=== PATIENT | female | born 2000 | race Caucasian/White ===

== ENCOUNTER → 2019-01-24 | Outpatient (REF) | payer BC, MEDICAID ==
[2019-01-24 17:29] LABS: APPEARANCE, URINE CLEAR (CLEAR); BACTERIA, URINE AUTO 3+ (NEGATIVE); BILIRUBIN, URINE AUTO NEGATIVE (NEGATIVE); BLOOD, URINE BLOOD 1+ (NEGATIVE); COLOR, URINE YELLOW (YELLOW); GLUCOSE, URINE (UA) AUTO NEGATIVE (NEGATIVE); KETONE, URINE AUTO NEGATIVE (NEGATIVE); LEUKOCYTE ESTERASE, URINE AUTO 3+ (NEGATIVE); MUCUS, URINE SMALL (NEGATIVE); NITRITE, URINE AUTO NEGATIVE (NEGATIVE); PROTEIN, URINE AUTO NEGATIVE (NEGATIVE); RBC, URINE AUTO 6 /HPF (0-3); SPECIFIC GRAVITY URINE AUTO 1.004 (1.002-1.035); SQUAMOUS EPITHELIAL CELL UR AU 6 /HPF (0-6); UROBILINOGEN, URINE AUTO 0.2 mg/dL (0.0-2.0); WBC, URINE AUTO 47 /HPF (0-3)
== END ==
LOC: M LAB REF 16:45
PROVIDERS: ATTEND Physician Assistant Medical
DX: N39.0 Urinary tract infection, site not specified (principal)

== ENCOUNTER → 2019-02-24 | Outpatient (REF) | payer BC, MEDICAID ==
[2019-02-24 23:35] LABS: CHLAMYDIA DNA AMPLIFICATION NEGATIVE (NEGATIVE); GC DNA AMPLIFICATION NEGATIVE (NEGATIVE)
== END ==
LOC: M LAB REF 10:59
PROVIDERS: ATTEND Physician Assistant
DX: R30.0 Dysuria (principal)

== ENCOUNTER → 2019-08-18 | Outpatient (REF) | payer BC, MEDICAID ==
[2019-08-18 18:05] LABS: HEMATOCRIT 38.9 % (36.0-47.0); HEMOGLOBIN 12.7 g/dl (12.0-15.5); MEAN CORPUSCULAR HEMOGLOBIN 27.7 pg (27.0-33.0); MEAN CORPUSCULAR HGB CONC 32.6 g/dl (32.0-36.5); MEAN CORPUSCULAR VOLUME 84.7 fl (80.0-96.0); PLATELET COUNT, AUTOMATED 321 10^3/uL (150-450); RED BLOOD COUNT 4.59 10^6/uL (4.00-5.40); WHITE BLOOD COUNT 7.4 10^3/uL (4.0-10.0)
[2019-08-18 20:40] LABS: CHLAMYDIA DNA AMPLIFICATION NEGATIVE (NEGATIVE); GC DNA AMPLIFICATION NEGATIVE (NEGATIVE)
[2019-08-19 09:29] LABS: HEPATITIS B SURFACE ANTIGEN NEGATIVE (NEGATIVE); HEPATITIS C VIRUS ABY INDEX 0.2 INDEX (<0.8); HIV 1&2 SCREEN CENTAUR NEGATIVE (NEGATIVE); RUBELLA IgG QUALITATIVE IMMUNE (IMMUNE)
== END ==
LOC: M PLALAB 14:17
PROVIDERS: ATTEND Advanced Practice Midwife
DX: Z34.01 Encounter for supervision of normal first pregnancy, first trimester (principal)

== ENCOUNTER → 2019-09-16 | Outpatient (REF) | payer BC, MEDICAID | LOC: M SFHCWAGY 16:31 | PROVIDERS: ATTEND Advanced Practice Midwife | DX: Z34.01 Encounter for supervision of normal first pregnancy, first trimester (principal) ==

== ENCOUNTER 2019-10-29 15:41 | Emergency (ER) | payer BC, MEDICAID ==
[~2019-10-29] VITALS: Ht 165.1 cm; Wt 57.3 kg
[2019-10-29] MEDS ORDERED: PREN29TA4 PO (15:47)
[2019-10-29 16:31] LABS: BASO % 0.3 % (0.0-1.0); EOS % 0.5 % (0.0-3.0); HEMATOCRIT 35.2 % (36.0-47.0); HEMOGLOBIN 11.6 g/dl (12.0-15.5); LYMPH # 1.4 10^3/uL (1.5-5.0); LYMPH % 17.6 % (24.0-44.0); MEAN CORPUSCULAR HEMOGLOBIN 27.4 pg (27.0-33.0); MEAN CORPUSCULAR VOLUME 83.2 fl (80.0-96.0); MONO # 0.5 10^3/uL (0.0-0.8); MONO % 6.5 % (0.0-5.0); NEUTROPHILS # 5.7 10^3/uL (1.5-8.5); NEUTROPHILS % 74.7 % (36.0-66.0); PLATELET COUNT, AUTOMATED 289 10^3/uL (150-450); RED BLOOD COUNT 4.23 10^6/uL (4.00-5.40); WHITE BLOOD COUNT 7.7 10^3/uL (4.0-10.0)
[2019-10-29 16:59] LABS: BLOOD UREA NITROGEN 5 MG/DL (7-18); CARBON DIOXIDE LEVEL 26 MEQ/L (21-32); CHLORIDE LEVEL 106 MEQ/L (98-107); GLUCOSE, FASTING 92 MG/DL (70-100); SODIUM LEVEL 137 MEQ/L (136-145)
[2019-10-29 17:02] LABS: APPEARANCE, URINE CLEAR (CLEAR); BACTERIA, URINE AUTO 1+ (NEGATIVE); BILIRUBIN, URINE AUTO NEGATIVE (NEGATIVE); BLOOD, URINE BLOOD 3+ (NEGATIVE); COLOR, URINE STRAW (YELLOW); GLUCOSE, URINE (UA) AUTO NEGATIVE (NEGATIVE); KETONE, URINE AUTO TRACE mg/dL (NEGATIVE); LEUKOCYTE ESTERASE, URINE AUTO 2+ (NEGATIVE); NITRITE, URINE AUTO NEGATIVE (NEGATIVE); PROTEIN, URINE AUTO NEGATIVE (NEGATIVE); RBC, URINE AUTO 60 /HPF (0-3); SPECIFIC GRAVITY URINE AUTO 1.003 (1.002-1.035); SQUAMOUS EPITHELIAL CELL UR AU 0 /HPF (0-6); UROBILINOGEN, URINE AUTO 0.2 mg/dL (0.0-2.0); WBC, URINE AUTO 16 /HPF (0-3)
--- NOTE | 2019-10-29 18:03 | REPVR ---
PROCEDURE INFORMATION: Exam: US , Limited Exam date and time: 10/29/2019 5:22 PM Age: 19 years old Clinical indication: Lmp or gestational age (in weeks): 18 weeks; Antepartum complications; Bleeding; ; Additional info: Vaginal bleeding post coital, 18 weeks TECHNIQUE: Imaging protocol: Real-time ultrasound of the maternal uterus with image documentation. Exam focused on the clinical indication. COMPARISON: No relevant prior studies available. FINDINGS: Gestation: Single intrauterine gestation. Single fetus demonstrated. Heart rate: heart rate 144 bpm. Placenta: Posterior placenta without evidence of placenta previa. Amniotic fluid: Unremarkable amniotic fluid volume. BIOMETRY: Estimated gestational age: Gestational age based on LMP of 06/25/2019 is 18 weeks. Estimated due date: EMMA 03/31/2020. MATERNAL: Cervix: Cervix measures 4.3 cm. Other findings: Anatomical survey was not requested or performed on this exam. IMPRESSION: Unremarkable limited examination of this 18 weeks gestational age fetus. Electronically signed by: Rafiq Ramires On 10/29/2019 18:02:40 PM
[2019-10-29] MEDS ORDERED: KEFL500C17 PO (19:08)
[2019-10-29 19:25] VITALS: BP 105/85
== END 2019-10-29 19:25 | disposition home or self-care (01) ==
LOC: M ED 15:41
DX: O21.8 Other vomiting complicating pregnancy (principal); O23.42 Unspecified infection of urinary tract in pregnancy, second trimester; Z3A.18 18 weeks gestation of pregnancy; Z88.6 Allergy status to analgesic agent

== ENCOUNTER → 2019-11-14 | Outpatient (CLI) | payer BC, MEDICAID ==
[~2019-11-14] MED LIST: ACET-683 PO; KEFL500C17 PO; PREN29TA4 PO
--- NOTE | 2019-11-14 16:13 | REP ---
OBSTETRIC SONOGRAPHY: HISTORY: Supervision of for anatomy. FINDINGS: Scanning through the gravid uterus demonstrates a single living intrauterine gestation in a variable lie. motion is observed and heart rate is recorded at 149 beats per minute. A posterior grade 1 placenta is seen without evidence of previa or abruption. Amniotic fluid is subjectively normal. Closed cervical length measures 3.7 cm, viewed transabdominally. No extrauterine abnormality is observed. There has been appropriate interval growth. No anomaly is seen. The following anatomic structures are identified and felt to be sonographically unremarkable: cranium, choroid plexus, cavum, cerebellum and posterior fossa, nuchal fold, face and profile, four-chamber heart with left and right ventricular outflow tract views, diaphragm, left-sided stomach, abdominal wall cord insertion, three-vessel cord, kidneys and bladder, spine, upper and lower extremities. BIOMETRY CHART: BPD 4.8 cm = 20 weeks 4 days Head circumference 17.9 cm = 20 weeks 2 days Abdominal circumference 15.1 cm = 20 weeks 2 days Femur length 3.5 cm = 21 weeks 1 day Humeral length 3.5 cm = 21 weeks 6 days HC/AC ratio normal 1.19, cephalic index normal 0.74, estimated weight 368 grams, 0 pounds 12 ounces, 59th percentile for 20 weeks 2 days. IMPRESSION: Viable single intrauterine gestation at 20 weeks 3 days by today's composite criteria. Expected gestational age estimate based on prior sonography is 20 weeks 2 days. EMMA by prior sonography, March 31, 2020.
== END ==
LOC: M WHC 13:26
PROVIDERS: ATTEND Advanced Practice Midwife
DX: Z34.82 Encounter for supervision of other normal pregnancy, second trimester (principal)

== ENCOUNTER → 2019-12-30 | Outpatient (CLI) | payer BC, MEDICAID ==
[2020-02-16 17:54] LABS: BASO % 0.3 % (0.0-1.0); EOS # 0.1 10^3/uL (0.0-0.5); EOS % 0.9 % (0.0-3.0); HEMATOCRIT 34.5 % (36.0-47.0); HEMOGLOBIN 10.8 g/dl (12.0-15.5); LYMPH # 1.1 10^3/uL (1.5-5.0); MEAN CORPUSCULAR HEMOGLOBIN 26.9 pg (27.0-33.0); MEAN CORPUSCULAR HGB CONC 31.3 g/dl (32.0-36.5); MEAN CORPUSCULAR VOLUME 85.8 fl (80.0-96.0); MONO # 0.6 10^3/uL (0.0-0.8); MONO % 8.8 % (0.0-5.0); NEUTROPHILS # 4.9 10^3/uL (1.5-8.5); NEUTROPHILS % 73.4 % (36.0-66.0); PLATELET COUNT, AUTOMATED 266 10^3/uL (150-450); RED BLOOD COUNT 4.02 10^6/uL (4.00-5.40); WHITE BLOOD COUNT 6.6 10^3/uL (4.0-10.0)
== END ==
LOC: M LAB 12:40
PROVIDERS: ATTEND Nurse Practitioner Women's Health
DX: Z34.02 Encounter for supervision of normal first pregnancy, second trimester (principal); Z3A.20 20 weeks gestation of pregnancy

== ENCOUNTER → 2020-03-16 | Outpatient (REF) | payer BC, MEDICAID ==
[~2020-03-16] MED LIST changes: -ACET-683 PO
[2020-03-16 13:05] LABS: HEMATOCRIT 37.5 % (36.0-47.0); HEMOGLOBIN 11.7 g/dl (12.0-15.5); MEAN CORPUSCULAR HEMOGLOBIN 27.1 pg (27.0-33.0); MEAN CORPUSCULAR HGB CONC 31.2 g/dl (32.0-36.5); PLATELET COUNT, AUTOMATED 237 10^3/uL (150-450); RED BLOOD COUNT 4.31 10^6/uL (4.00-5.40); WHITE BLOOD COUNT 6.9 10^3/uL (4.0-10.0)
[2020-03-16 13:28] LABS: TOTAL PROTEIN,RANDOM URINE 5.6 MG/DL (0.0-12.0)
[2020-03-16 13:33] LABS: ALT/SGPT 12 U/L (12-78); BILIRUBIN,TOTAL 0.3 MG/DL (0.2-1.0); LDH LACTATE DEHYDROGENASE 158 U/L (84-246); URIC ACID 5.5 MG/DL (2.6-6.0)
== END ==
LOC: M PLALAB 10:47
PROVIDERS: ATTEND Advanced Practice Midwife
DX: O16.3 Unspecified maternal hypertension, third trimester (principal); Z3A.00 Weeks of gestation of pregnancy not specified

== ENCOUNTER → 2020-03-21 | Outpatient (CLI) | payer BC, MEDICAID | LOC: M LABSMTC 10:29 | PROVIDERS: ATTEND Anesthesiology | DX: Z01.818 Encounter for other preprocedural examination (principal) | CPT/HCPCS: C9803; U0002 ==

== ENCOUNTER 2020-03-26 03:47 | Inpatient (IN) | payer BC, MEDICAID ==
[~2020-03-26] VITALS: Ht 165.1 cm; Wt 69.1 kg
[2020-03-26] VITALS (28 sets, daily range): BP systolic 107–150; BP diastolic 54–87
[2020-03-26] MEDS ORDERED: PENICILLIN G POTASSIUM IV 5 MU in D5W MINI-BAG PLUS 100 ML IV STA (08:51)
[2020-03-26] MEDS ORDERED: LACTATED RINGER'S 1000 ML IV STA (08:51)
--- NOTE | 2020-03-26 09:01 | HPEPDOC ---
Obstetrical History & Physical General Date of Admission 03/26/20 History of Present Illness Jacob is a 19 y/o at 39.2weeks EGA by LMP (06/25/19). She started her care at [facility] in the first trimester. History significant for asthma, GBS bacteriuria, and one elevated BP on 03/24/20. Preeclamptic labs showed a urine protein/creatinine ratio of 0.4, all other labs were in normal limits. She presents today with a c/o contractions that started at 1900 and progressed throughout the night. She has not been able to rest through them and appears uncomfortable breathing through contractions this morning. Reports good FM, denies LOF, vaginal bleeding. Denies headache, visual disturbances, epigastric pain, nausea/vomiting. Chief Complaint: Contractions, term Information Provided By: Patient Age: 19 : 2 Term: 0 Pre-term: 0 Abortions: 1 Livin Care Care: Good Care Dating Final EDC: Mar 31, 2020 Final EDC by: LMP LMP: Jun 25, 2019 EGA at Admission: 39.2 Antepartum Course Diagnos(e)s Preeclampsia Height (inches): 65 Pre- weight (lbs.): 122 Admission Weight (lbs.): 152 Change in Weight (lbs.): 30 Past Medical History Past Obstetrical History : Past Obstetrical History: [employer] History: Spontaneous Past Medical History Medical History Asthma, no medications Surgical History: Tonsilectomy (With Adenoidectomy), Other (Eustachian tubes) Family History Significant Family History: Cancer (MGF), Hypertension (MGM) Social History Marital Status: Single Family situation: Spouse/partner home (S/O on COVID isolation protocol, has another labor personal health coach who will be present) Psychosocial History: No pertinent psych hx * Smoker: non-smoker Alcohol: Denies Drugs: denies Imunizations Tdap status: current Influenza Status: declined Allergies Coded Allergies: ibuprofen (Verified Allergy, Unknown, 10/29/19) Medications Scheduled Prenat 115/Iron Fum/Folic/Dss ( 19 Tablet) 1 Each Tablet, 1 TAB PO DAILY Physical Examination Physical Examination GENERAL: Alert and oriented times three. VSS, afebrile, normotensive. ABDOMEN: Gravid and non-tender to touch. Mild contractions palpated, resting tone soft. FETUS: Is vertex (VTX) by sterile vaginal examination (SVE), fetus is vertex (VTX) by Zachary. EFW 7-7.5 lbs. HEART RATE: Regular rate and rhythm. LUNGS: Clear to auscultation (CTA) bilaterally. EXTREMITIES: No edema. No clonus. Deep tendon reflexes (DTRs) + 2. Negative clonus. Vital Signs/I&O Vital Signs Date Time Temp Pulse Resp B/P (MAP) Pulse Ox O2 Delivery O2 Flow Rate FiO2 03/26/20 07:10 97.7 90 18 131/61 (84) Laboratory Data Urine Culture: Other (GBS) Pertinent Laboratoy Data Blood Type: A+ RBC Antibody Screen: Negative HIV: Negative Hepatitis B: Negative Hepatitis C: Negative Rapid Plasma Reagin: Nonreactive Rubella: Immune Chlamydia/Gonorrhea: Negative Group B Streptococcus: Positive (in urine) Quad Screen Test: Declined Cystic Fibrosis: Declined Glucose Tolerance Test: 97 Diag/Inter Therapy 03/21/20 - COVID Negative Anatomy Ultrasound Ultrasound Date: Nov 14, 2019 Normal Anatomy: Yes Placenta Previa: No Estimated Weight (grams): 368 Steroid Therapy Steroid Therapy: No Vaginal Examination Dilation: 4 cm Effacement: 80% Station: 0 Cervical Consistency: Soft Cervical Position: Posterior Presentation: Cephalic presentation Position: Vertex (occiput) Assessment Heart Rate (FHR): 135 Variability: Moderate Accelerations: Positive Decelerations: None Tocometer Contractions: Yes Frequency: irregular, every 3-7 min. Duration: greater than 60 seconds Strength: palpated as mild Multi-drug resistant Organism: No history of MDRO Assessment/Plan Assessment SIUP at 39.2weeks Preeclampsia GBS positive Cat 1 FHR tracing active labor Plan Admit to Labor and Delivery. Dr. Fitzgerald aware of patient being in department. OOB ad nalini. Diet: Clear Liquids. Group B Streptococcus (GBS) positive in urine. PCN G to be started. Labs and intravenous (IV) per unit protocol. Counseled on potential augmentation with IV Pitocin. Plans for an epidural for labor pain management. Consult Anesthesia. Lactated Ringers (LR): Bolus 600 mL, then saline lock. Anticipate normal spontaneous delivery (). C-S as appropriate. ABUNDIO CHRISTOPHER CNM Mar 26, 2020 08:31
[2020-03-26 09:43] LABS: HEMATOCRIT 38.6 % (36.0-47.0); HEMOGLOBIN 12.1 g/dl (12.0-15.5); MEAN CORPUSCULAR HEMOGLOBIN 26.9 pg (27.0-33.0); MEAN CORPUSCULAR HGB CONC 31.3 g/dl (32.0-36.5); PLATELET COUNT, AUTOMATED 232 10^3/uL (150-450); RED BLOOD COUNT 4.49 10^6/uL (4.00-5.40); WHITE BLOOD COUNT 11.6 10^3/uL (4.0-10.0)
[2020-03-26 10:03] LABS: ALT/SGPT 11 U/L (12-78); BILIRUBIN,TOTAL 0.2 MG/DL (0.2-1.0); CREATININE FOR GFR 0.59 MG/DL (0.55-1.30); LDH LACTATE DEHYDROGENASE 212 U/L (84-246); URIC ACID 5.8 MG/DL (2.6-6.0)
[2020-03-26] MEDS ORDERED: FENTANYL 2MCG/ML ROPIVACAINE 0.2% IN 0.9% NACL 100ML IVBAG As Ordered ONE (10:51)
[2020-03-26] MEDS ORDERED: OXYTOCIN 30 UNITS IN 0.9% NaCl 500ML IV BAG (J2590) As Ordered ONE (11:35)
[2020-03-26] MEDS ORDERED: REFRIGERATOR IV KEYS XX PRN (13:00)
[2020-03-26] MEDS ORDERED: EPIDURAL/PCA KEYS XX PRN (13:00)
[2020-03-26] MEDS ORDERED: ePHEDrine SULFATE 25 MG/5 ML(5MG/ML) SYRINGE IV PRN (13:00)
[2020-03-26] MEDS ORDERED: LACTATED RINGER'S 1000 ML IV PRN (13:00)
[2020-03-26] MEDS ORDERED: NALOXONE INJ 0.4MG/1ML VIAL (J2310 PER 1MG) IV PRN (13:00)
[2020-03-26] MEDS ORDERED: EPIDURAL COMMENT XX SCH (13:00)
[2020-03-26] MEDS ORDERED: FENTANYL/ROPIVACAINE/NACL BAG 100 ML EPIDURAL SCH (13:00)
[2020-03-26] MEDS ORDERED: diphenhydrAMINE 50MG/ML VIAL (J1200) IV PRN (13:00)
[2020-03-26] MEDS ORDERED: ONDANSETRON 4MG/2ML VIAL IV PRN (13:00)
[2020-03-26] MEDS: PENICILLIN G POTASSIUM IV 2.5 MU in IV 1 EA IV SCH ×2 (13:16→17:09)
[2020-03-26] MEDS ORDERED: OXYTOCIN DRIP 30 UNITS in IV 1 EA IV SCH (14:00)
[2020-03-26] MEDS: LR 1,000 ML IV SCH ×2 (14:01→19:38)
--- NOTE | 2020-03-26 15:03 | IPNPDOC ---
Obstetrical Progress Note Date of Service Mar 26, 2020 Subjective Reports being much more comfortable with epidural. Objective Vital Signs Date Time Temp Pulse Resp B/P (MAP) Pulse Ox O2 Delivery O2 Flow Rate FiO2 03/26/20 13:11 83 121/61 (81) 03/26/20 07:10 97.7 18 Assessment Heart Rate (FHR): 135 Variability: Moderate Accelerations: Positive Decelerations: None Heart Rate Tracing: Category I Tocometer Contractions: Yes Frequency: irregular, every 2-5 min. Duration: greater than 60 seconds Strength: palpated as moderate, resting tone palp/soft Sterile Vaginal Examination Dilation: 5 cm Effacement (%): 100% Station: 0 Cervical Consistency: Soft Cervical Position: Anterior Postion/Presentation: Cephalic presentation Assessment and Plan Age: 19 : 2 Term: 0 Pre-term: 0 Abortions: 0 Livin EGA at Admission: 39.2 Status: Reassuring Group B Streptococcus: Negative Anticipate: Vaginal Delivery Additional Comments AROM for clear fluid. Pitocin at 4mu/min. Epidural running, working well per patient. Continue with Pitocin Cat 1 FHR tracing. Anticipate . ABUNDIO CHRISTOPHER CNM Mar 26, 2020 15:03
--- NOTE | 2020-03-26 19:14 | IPNPDOC ---
Obstetrical Progress Note Date of Service Mar 26, 2020 Subjective Reports epidural working well. Denies any rectal or vaginal pressure. Objective Vital Signs Date Time Temp Pulse Resp B/P (MAP) Pulse Ox O2 Delivery O2 Flow Rate FiO2 03/26/20 18:33 80 110/62 (78) 03/26/20 15:35 18 03/26/20 07:10 97.7 Assessment Heart Rate (FHR): 145 Variability: Moderate Accelerations: Positive Decelerations: None Heart Rate Tracing: Category I Tocometer Contractions: Yes Frequency: every 1-3 min. Duration: greater than 60 seconds Strength: palpated as mod/strong, resting tone palp/soft Sterile Vaginal Examination Dilation: 9 cm (Anterior Lip) Effacement (%): 100% Station: 0 Cervical Consistency: Soft (Stretchy) Cervical Position: Anterior Postion/Presentation: Cephalic presentation Assessment and Plan Age: 19 : 2 Term: 0 Pre-term: 0 Abortions: 1 Livin EGA at Admission: 39.2 Status: Reassuring Group B Streptococcus: Negative Anticipate: Vaginal Delivery Additional Comments Large amount of bloody show noted on bed pads, pads changed. Pitocin at 8mu/min. Continue Pitocin and position changes. ABUNDIO CHRISTOPHER CNM Mar 26, 2020 19:14
[2020-03-26] MEDS ORDERED: ACETAMINOPHEN 500 MG TAB PO ONE (19:45)
[2020-03-26 21:33] LABS: CORD GAS ABE V -5.5; CORD GAS HCO3 V 20.8 MEQ/L; CORD GAS O2 SAT V 67.2 %; CORD GAS PCO2 V 43.6 mmHg; CORD GAS PH V 7.297 UNITS; CORD GAS PO2 V 31.4 mmHg; CORD GAS SBC V 19.3 MEQ/L; CORD GAS TCO2 V 22.2 MEQ/L
[2020-03-26 21:33] LABS: CORD GAS ABE A -6.6; CORD GAS HCO3 A 22.1 MEQ/L; CORD GAS O2 SAT A 31.2 %; CORD GAS PCO2 A 57.8 mmHg; CORD GAS PH A 7.2 UNITS; CORD GAS PO2 A 18.1 mmHg; CORD GAS SBC A 17.8 MEQ/L; CORD GAS TCO2 A 23.9 MEQ/L
--- NOTE | 2020-03-26 21:54 | DNPDOC ---
[facility] Delivery Note Delivery Note DATE OF DELIVERY: 03/26/2020 TIME OF : 2118 GENDER: Male. APGARS: 5, 6 and 7 WEIGHT: 8 lbs. 10 oz. LACERATIONS: Bilateral labial ANESTHESIA: epidural ESTIMATED BLOOD LOSS: 300ml MODE OF DELIVERY: Low vacuum-assisted vaginal delivery COUNTS: 5 laparotomy sponges accounted for prior to after delivery. 3 sharps removed from delivery field. CORD GASES: 7.2 and 7.29 with base excess -6.6 and -5.5 respectively DELIVERY NOTE: On on 04/06/2020 Ms. Barger a 19-year-old 1 now para 1 had a low vacuum-assisted vaginal delivery of a liveborn male infant Apgars 5,6, 7 wt 8 lbs. 10 oz. Indication for operative delivery was nonreassuring testing with tachycardia with minimal variability. Patient was verbally consented for operative delivery and vacuum was placed and with 2 sets of maternal pushing effort 1 pop-off, head was delivered occiput anterior (OA), followed by delivery of the shoulders and corpus. Cord was clamped times two and was cut by support person under my direction. Placenta was then drained and delivered grossly intact. A premixed bag of 500 mL of normal saline with 30 units of Pitocin was then bolused along with uterine massage until the uterus was firm. On inspection bilateral labial lacerations which was repaired with 3- 0 Vicryl. On reinspection, cervix, vagina, perineum was grossly intact and hemostatic. Mom and baby recovery in stable condition. YASMANI PERALES MD. Mar 26, 2020 21:54
[2020-03-27 01:06] VITALS: BP 132/67
[2020-03-27] MEDS ORDERED: ACETAMINOPHEN 500 MG TAB PO ONE (05:00)
[2020-03-27 06:37] VITALS: BP 144/76
--- NOTE | 2020-03-27 07:12 | IPNPDOC ---
Progress Note Date of Service: Mar 27, 2020 Day#: 1 Progress Note SUBJECT: Jacob is a 19-year-old 2 now Para 1-0-1-1 status post vacuum assisted vaginal delivery at 39-2/7 weeks' with labial laceration and repair, doing well day # 1. She came in to L&D in active labor as she was waiting for a bed for L&D. She has been ambulating, and experiencing chest tightness, shortness of breath, and dizziness with ambulation. She is voiding spontaneously without issue and tolerating regular diet. Plans to start pumping this morning, as is still in the NICU but doing well. Reports lochia is like a normal period. Reports some cramping. Pain well controlled with Tylenol. OBJECTIVE: VITAL SIGNS: Within normal limits, afebrile. Alert and oriented times three. RESPIRATORY: Regular rate, no accessory muscle use. Abdomen: Fundus firm at U. Soft, NTTP. Minimal lochia. ASSESSMENT: Day 1, preeclampsia PLAN: 1. Anticipate discharge on Thursday. 2. Tylenol for pain. 3. Encourage pumping and ambulation. 4. CBC and preeclamptic profile ordered due to symptoms of dizziness with ambulation. VS, I&O, 24H, Fishbone Vital Signs/I&O Vital Signs Date Time Temp Pulse Resp B/P (MAP) Pulse Ox O2 Delivery O2 Flow Rate FiO2 03/27/20 06:37 98.1 75 20 144/76 (98) 03/27/20 01:06 98 Room Air I&O- Last 24 Hours up to 6 AM 03/27/20 06:00 Intake Total 2460 ml Output Total 2000 ml Balance 460 ml Laboratory Data 24H LABS Laboratory Tests 2 03/26/20 08:05: Coronavirus (COVID-19)(PCR) NEGATIVE 03/26/20 09:04: Serology Scanned Report Hepatitis B Testing 03/26/20 09:19: Nucleated Red Blood Cells % (auto) 0.0, Uric Acid 5.8, Total Bilirubin 0.2, Aspartate Amino Transf (AST/SGOT) 14, Alanine Aminotransferase (ALT/SGPT) 11L, Lactate Dehydrogenase 212, Syphilis Serology NONREACTIVE 03/26/20 21:26: Cord Arterial Blood pH 7.200, Cord Arterial Blood PCO2 57.8, Cord Arterial Blood PO2 18.1, Cord Arterial Blood HCO3 22.1, Cord Arterial Blood Total CO2 23.9, Cord Arterial Blood Base Excess -6.6, Cord Arterial Base Excess (Standard 17.8, Cord Arterial Bld Oxygen Saturation 31.2 03/26/20 21:28: Cord Venous Blood pH 7.297, Cord Venous Blood PCO2 43.6, Cord Venous Blood PO2 31.4, Cord Venous Blood HCO3 20.8, Cord Venous Blood Total CO2 22.2, Cord Venous Base Excess (Actual) -5.5, Cord Venous Base Excess (Standard) 19.3, Cord Venous Blood Oxygen Saturation 67.2 CBC/BMP Laboratory Tests 03/26/20 09:19 ABUNDIO CHRISTOPHER CNM Mar 27, 2020 07:11
[2020-03-27] MEDS ORDERED: OXYTOCIN DRIP 30 UNITS in IV 1 EA IV SCH (07:56)
[2020-03-27] MEDS ORDERED: ACETAMINOPHEN TAB 650MG DOSE (2X325MG) PO PRN (08:00)
[2020-03-27] MEDS ORDERED: ANUSOL HC CREAM 30GM TOP PRN (08:00)
[2020-03-27] MEDS ORDERED: DOCUSATE SODIUM 100 MG CAP PO PRN (08:00)
[2020-03-27] MEDS ORDERED: RHOGAM 300 MCG (1500 IU) INJ (J2790) IM SCH (08:00)
[2020-03-27] MEDS ORDERED: DIBUCAINE 1% OINTMENT 30GM TOP PRN (08:00)
[2020-03-27] MEDS ORDERED: MEASLES,MUMPS,RUBELLA VACCINE INJ (MMR-II) (90707) SC SCH (08:00)
[2020-03-27] MEDS ORDERED: ACETAMINOPHEN 500 MG TAB PO PRN (08:00)
[2020-03-27] MEDS ORDERED: METHYLERGONOVINE MALEATE 0.2 MG TAB PO PRN (08:00)
[2020-03-27 09:14] LABS: ALT/SGPT 9 U/L (12-78); BILIRUBIN,TOTAL 0.3 MG/DL (0.2-1.0); CREATININE FOR GFR 0.49 MG/DL (0.55-1.30); LDH LACTATE DEHYDROGENASE 199 U/L (84-246)
[2020-03-27] MEDS ORDERED: BICITRA 30ML SOLN UDC PO ONE (09:45)
[2020-03-27] MEDS: PRENATAL VITAMINS CHEWABLE TABLET PO SCH (09:49)
[2020-03-27 10:04] LABS: HEMOGLOBIN 10.6 g/dl (12.0-15.5); MEAN CORPUSCULAR HEMOGLOBIN 26.8 pg (27.0-33.0); MEAN CORPUSCULAR HGB CONC 31.2 g/dl (32.0-36.5); MEAN CORPUSCULAR VOLUME 85.9 fl (80.0-96.0); PLATELET COUNT, AUTOMATED 198 10^3/uL (150-450); RED BLOOD COUNT 3.96 10^6/uL (4.00-5.40); WHITE BLOOD COUNT 13.9 10^3/uL (4.0-10.0)
--- NOTE | 2020-03-27 17:05 | REP ---
INDICATION: chest pain, s/p vaginal delivery 03/26/2020. COMPARISON: PA chest 09/27/2007 TECHNIQUE: PA and lateral images were provided. FINDINGS: Two views show the lungs well inflated without pleural effusion, acute infiltrate, atelectasis or mass. Heart, mediastinal and hilar contours are normal. There is no pneumothorax or pneumomediastinum. The aorta and airway were intact. The bony thorax shows no focal lesion. There is no free air under the diaphragm. IMPRESSION: 1. Negative chest for infiltrate, effusion, atelectasis or other acute finding. No pneumothorax or free air under the diaphragm nor other acute chest finding. <Electronically signed by Sarbjit Pleitez > 03/27/20 [id number]
[2020-03-27 18:00] VITALS: BP 132/73
[2020-03-28 05:54] VITALS: BP 121/57
[2020-03-28] MEDS ORDERED: ACET-683 PO (06:42)
[2020-03-28] MEDS: PRENATAL VITAMINS CHEWABLE TABLET PO SCH (08:29)
[2020-03-28] MEDS ORDERED: INFLUENZA QUADRIVALENT PF VACCINE 0.5ML SYRINGE IM ONE (09:00)
== END 2020-03-28 14:50 | disposition home or self-care (01) | DRG 560 ==
LOC: M LDO 03:47 → M LDI 08:48 → M OBS 03-27 01:15
PROVIDERS: ADMIT Advanced Practice Midwife; ATTEND Obstetrics & Gynecology
PROC: 10D07Z6 Extraction of Products of Conception, Vacuum, Via Natural or Artificial Opening (ICD-10-PCS; principal; 2020-03-26)
PROC: 0HQ9XZZ Repair Perineum Skin, External Approach (ICD-10-PCS; 2020-03-26)
PROC: 10907ZC Drainage of Amniotic Fluid, Therapeutic from Products of Conception, Via Natural or Artificial Opening (ICD-10-PCS; 2020-03-26)
DX: O14.94 Unspecified pre-eclampsia, complicating childbirth (principal); O99.824 Streptococcus B carrier state complicating childbirth; Z3A.39 39 weeks gestation of pregnancy; O76 Abnormality in fetal heart rate and rhythm complicating labor and delivery; O70.0 First degree perineal laceration during delivery; Z37.0 Single live birth

== ENCOUNTER → 2020-10-25 | Outpatient (REF) | payer BC, MEDICAID ==
[~2020-10-25] MED LIST changes: +ACET-683 PO
[2020-10-25 18:10] LABS: APPEARANCE, URINE CLOUDY (CLEAR); BACTERIA, URINE AUTO 1+ (NEGATIVE); BILIRUBIN, URINE AUTO NEGATIVE (NEGATIVE); BLOOD, URINE BLOOD 2+ (NEGATIVE); COLOR, URINE YELLOW (YELLOW); GLUCOSE, URINE (UA) AUTO NEGATIVE (NEGATIVE); KETONE, URINE AUTO NEGATIVE (NEGATIVE); LEUKOCYTE ESTERASE, URINE AUTO 3+ (NEGATIVE); MUCUS, URINE SMALL (NEGATIVE); NITRITE, URINE AUTO NEGATIVE (NEGATIVE); PROTEIN, URINE AUTO NEGATIVE (NEGATIVE); RBC, URINE AUTO 6 /HPF (0-3); SPECIFIC GRAVITY URINE AUTO 1.004 (1.002-1.035); SQUAMOUS EPITHELIAL CELL UR AU 9 /HPF (0-6); UROBILINOGEN, URINE AUTO 0.2 mg/dL (0.0-2.0); WBC, URINE AUTO 64 /HPF (0-3)
== END ==
LOC: M LAB REF 17:04
PROVIDERS: ATTEND Physician Assistant
DX: R30.0 Dysuria (principal)

== ENCOUNTER → 2020-11-26 | Outpatient (REF) | payer BC, MEDICAID ==
[2020-11-26 16:53] LABS: APPEARANCE, URINE CLOUDY (CLEAR); BACTERIA, URINE AUTO NEGATIVE (NEGATIVE); BILIRUBIN, URINE AUTO NEGATIVE (NEGATIVE); BLOOD, URINE BLOOD 3+ (NEGATIVE); COLOR, URINE YELLOW (YELLOW); GLUCOSE, URINE (UA) AUTO NEGATIVE (NEGATIVE); KETONE, URINE AUTO NEGATIVE (NEGATIVE); LEUKOCYTE ESTERASE, URINE AUTO 3+ (NEGATIVE); NITRITE, URINE AUTO NEGATIVE (NEGATIVE); PROTEIN, URINE AUTO NEGATIVE (NEGATIVE); RBC, URINE AUTO 3 /HPF (0-3); SPECIFIC GRAVITY URINE AUTO 1.013 (1.002-1.035); SQUAMOUS EPITHELIAL CELL UR AU 17 /HPF (0-6); UROBILINOGEN, URINE AUTO 0.2 mg/dL (0.0-2.0); WBC, URINE AUTO 92 /HPF (0-3)
== END ==
LOC: M LAB REF 16:25
PROVIDERS: ATTEND Physician Assistant Medical
DX: N39.0 Urinary tract infection, site not specified (principal)

== ENCOUNTER → 2021-02-22 | Outpatient (REF) | payer BC, MEDICAID ==
[2021-02-22 14:09] LABS: APPEARANCE, URINE HAZY (CLEAR); BACTERIA, URINE AUTO 1+ (NEGATIVE); BILIRUBIN, URINE AUTO NEGATIVE (NEGATIVE); BLOOD, URINE BLOOD 1+ (NEGATIVE); COLOR, URINE YELLOW (YELLOW); GLUCOSE, URINE (UA) AUTO NEGATIVE (NEGATIVE); KETONE, URINE AUTO NEGATIVE (NEGATIVE); LEUKOCYTE ESTERASE, URINE AUTO 3+ (NEGATIVE); MUCUS, URINE SMALL (NEGATIVE); NITRITE, URINE AUTO NEGATIVE (NEGATIVE); PROTEIN, URINE AUTO NEGATIVE (NEGATIVE); RBC, URINE AUTO 3 /HPF (0-3); SPECIFIC GRAVITY URINE AUTO 1.005 (1.002-1.035); SQUAMOUS EPITHELIAL CELL UR AU 11 /HPF (0-6); UROBILINOGEN, URINE AUTO 0.2 mg/dL (0.0-2.0); WBC, URINE AUTO 21 /HPF (0-3)
== END ==
LOC: M LAB REF 13:35
PROVIDERS: ATTEND Physician Assistant
DX: R30.0 Dysuria (principal)